=== PATIENT | female | born 2005 | race Caucasian/White ===

== ENCOUNTER 2024-09-24 10:15 | Emergency (ER) | payer MEDICAID, SELFPAY ==
[2024-09-24 10:16] VITALS: BP 133/85; PULSE 105; RESP 20; TEMP 37.2; O2SAT 95; BMI 33.2
--- NOTE | 2024-09-24 11:02 | CT_ITS ---
STUDY: CT SOFT TISSUE NECK WITH CONTRAST REASON FOR EXAM: Female, 19 years old. foreign body sensation in the neck. Two-week history of a sore throat. RADIATION DOSAGE (If Supplied By Facility): CTDIvol = ( 17.98 ) mGy, DLP = ( 539.01 ) mGycm TECHNIQUE: The patient was scanned in a multi-detector CT scanner. High resolution transaxial imaging was performed following intravenous administration of IV 75mL Isovue-370. Sagittal and coronal images were reconstructed. Individualized dose optimization techniques were used for this CT. COMPARISON: None. FINDINGS: Normal bilateral parotid glands. Normal bilateral vocational rehabilitation technician spaces. Normal bilateral parapharyngeal spaces. Normal bilateral carotid spaces. Normal bilateral sublingual and submandibular glands and spaces. Normal visualized nasopharynx. Normal retropharyngeal space. Normal perivertebral space. Normal visualized bilateral faucial tonsils. The visualized tongue, tongue base and oropharynx are normal. The visualized cervical lymph nodes (levels I-) are within normal size limits, and maintain normal morphology. There is no demonstrated solid or cystic mass lesion. There is no abnormal contrast enhancement. Normal epiglottis, bilateral vallecula and hypopharynx. The pre-epiglottic and paraglottic adipose spaces are normal. Normal visualized bilateral piriform sinuses, aryepiglottic folds, vocal cords, and arytenoid-cricoid articulations. Normal subglottic trachea. Normal bilateral lobes of the thyroid gland. Normal visualized pulmonary apices. Normal visualized paranasal sinuses. Normal visualized cervical spine. CT/Soft Tissue Neck WITH Contrast IMPRESSION: Normal enhanced CT examination of the soft tissues of the neck. Electronically Signed: Edgardo Costa MD at 12:17 EST ,
--- NOTE | 2024-09-24 11:03 | RAD_ITS ---
STUDY: X-RAY CHEST REASON FOR EXAM: Female, 19 years old. Cough TECHNIQUE: PA and lateral views of the chest. COMPARISON: Comparison is made with prior study dated June 25, 2014. FINDINGS: The lungs are clear and expanded. There is no demonstrated pleural abnormality. Normal size heart. Normal mediastinum and blayne. Normal visualized pulmonary arteries. Normal visualized aortic arch and descending thoracic aorta. Normal visualized thoracic spine. Normal visualized ribs, clavicles, and shoulders. There is no demonstrated abnormality of the visualized soft tissue structures of the upper abdomen. RAD/Chest PA and Lateral IMPRESSION: Normal x-ray examination of the chest. Electronically Signed: Edgardo Costa MD at 12:17 [facility] ,
[2024-09-24 11:23] LABS: Absolute Lymphocyte Count 2.17 X10^3/uL (0.83-4.51); Basophil# 0.05 X10^3/uL; Basophil% 0.6 % (0-1); Eosinophil# 0.22 X10^3/uL; Eosinophils% 2.7 % (0-5); Hematocrit 42.5 % (37-47); Hemoglobin 13.8 g/dL (12.0-15.0); Lymphocyte # 2.17 X10^3/ul (0.83-4.51); Lymphocyte % 26.9 % (19-41); Mean Corp Hgb Conc 32.5 g/dL (32-36); Mean Corpuscular Hgb 28.8 pg (27.0-32.0); Mean Corpuscular Volume 88.5 fL (81-99); Mean Platelet Vol. 9.8 fl (6.2-12.0); Monocyte# 0.66 X10^3/uL; Monocyte% 8.2 % (0-10); NRBC Flagged by Analyzer 0 % (0-5); Neutrophil # 4.96 X10^3/uL (2.7-7.7); Neutrophil % 61.4 % (47-70); Platelet Count 343 K/mm3 (150-450); RBC Distribution Width CV 13.1 % (11.6-14.6); RBC Distribution Width SD 42.4 fl (35.1-43.9); White Blood Count 8.1 K/mm3 (4.4-11.0)
[2024-09-24 11:34] LABS: Internal QC Validated? YES +Cl - CLEAR BKGD; Pregnancy, Serum, hCG Quali. NEGATIVE Negative
--- NOTE | 2024-09-24 11:35 | ED.VIS.DYS ---
HPI History of Present Illness Chief Complaint: Cough Narrative Narrative: Chief complaint and HPI: Throat foreign body sensation. 19-year-old female with no significant past medical history presents for evaluation of throat foreign body sensation. Patient states 3 weeks ago she developed a foreign body sensation in her throat. Mostly located on the right side. Patient states that it is causing her to cough frequently. She went to urgent care and they tested her for strep pharyngitis which was negative. Gave her cough medicine. Patient does not follow regularly with a PCP so therefore did not follow-up. She has continued to have this sensation as well as coughing. She denies any fever, chills, congestion, body aches, headache, night sweats, sore throat, weight loss, chest pain, shortness of breath, abdominal pain, nausea, vomiting. Patient denies any acid reflux. Eating and drinking well. Denies choking on any foreign body. Review of systems: See HPI Medications: As listed on the chart Allergies: As listed on the chart PFSH: Per chart Vital signs: As listed on the chart. Reviewed. Physical exam: Gen: A&O x3, NAD Head: Normocephalic, atraumatic Eyes: No sclera icterus, conjunctiva clear, PERRL, EOMI ENT: TMs clear BL, moist mucous membranes, posterior oropharynx unremarkable, uvula midline, tonsils not enlarged, no tonsillar exudates Neck: Trachea midline, No JVD, Full ROM, No meningismus, no lymphadenopathy, no thyroid enlargement CV: RRR, no murmurs, no peripheral edema Resp: Lungs CTA BL, no w/r/c GI: Abd soft, non-distended, non-tender, no r/r/g Musc: Full ROM, no deformity Skin: Warm, dry, no rash Neuro: Alert, oriented, grossly intact, sensation intact Psych: Cooperative, appropriate mood and affect [facility] Home Medications ?Medication ?Instructions ?Recorded ?Last Taken ?Type pantoprazole 40 mg tablet,delayed 40 mg PO DAILY 30 days #30 tabs 09/24/24 Unknown Rx release (Protonix) Allergy/AdvReac Type Severity Reaction Status Date / Time No Known Allergies Allergy Verified 06/24/14 23:12 Social History Smoking Status: Never smoker EXAM Physical Exam Const Vital Signs: 09/24/24 10:16 09/24/24 10:16 Temperature 99 F Temperature Source Temporal Pulse Rate 105 H Respiratory Rate 20 H Respiratory Effort Normal Non-Labored Respiratory Depth Normal Respiratory Pattern Normal Blood Pressure 133/85 H Blood Pressure Mean 101 Pulse Ox 95 Oxygen Delivery Method Room Air MDM MDM MDM Narrative Medical decision making narrative: 19-year-old female with no significant past medical history presents for evaluation of throat foreign body sensation. Differential diagnosis includes but is not limited to GERD, acid reflux, strep pharyngitis, mono, lymphadenopathy, soft tissue mass. Physical exam is unremarkable. Except for patient is frequently has a dry cough and sounds as if she is clearing her throat. Pepcid ordered for suspected GERD. Will obtain basic labs including strep PCR, monotest, and CT soft tissue neck. CBC without leukocytosis or anemia. BMP unremarkable. Monotest negative. Strep PCR negative. Chest x-ray personally reviewed by [place], ED physician. No pneumothorax, effusion, pneumonia, cardiomegaly. CT soft tissue neck without any acute abnormality. At this point in time, no clear etiology to explain patient's symptoms. Given that she has this chronic cough with a globus sensation suspect possible acid reflux versus GERD. Will place on Protonix. Follow-up with PCP. Patient and mother were updated of all the results and the plan. They confirmed understanding. Patient stable to discharge home. Impression: 1. Globus sensation 2. Chronic cough 3. Concern for possible GERD Lab Data Labs: Laboratory Results - last 24 hr 09/24/24 11:11 WBC 8.1 RBC 4.80 Hgb 13.8 Hct 42.5 MCV 88.5 MCH 28.8 MCHC 32.5 RDW Std Deviation 42.4 RDW Coeff of Jodie 13.1 Plt Count 343 MPV 9.8 Immature Gran % (Auto) 0.200 Neut % (Auto) 61.4 Lymph % (Auto) 26.9 Lamar % (Auto) 8.2 Eos % (Auto) 2.7 Baso % (Auto) 0.6 Absolute Neuts (auto) 5.0 Absolute Lymphs (auto) 2.17 Nucleated RBC % 0 Sodium 138 Potassium 3.8 Chloride 104 Carbon Dioxide 28.0 Anion Gap 6 BUN 7 Creatinine 0.75 Estim Creat Clear Calc 141.39 Est GFR (MDRD) Af Amer 124 Est GFR (MDRD) Non-Af 103 BUN/Creatinine Ratio 9.3 L Glucose 95 Calcium 9.8 Serum , Qual NEGATIVE Monoscreen Negative Radiography Diagnostic Testing: Clinical Impression(s) from Imaging Studies Soft Tissue Neck CT 09/24/24 11:02 IMPRESSION: Normal enhanced CT examination of the soft tissues of the neck. Electronically Signed: Egdardo Costa MD at 12:17 EST , Chest X-Ray 09/24/24 11:03 IMPRESSION: Normal x-ray examination of the chest. Electronically Signed: Edgardo Costa MD at 12:17 EST , Discharge Plan Triage Chief Complaint: Cough ED Provider: Laz Miller Dx/Rx/DC Orders Clinical Impression: Acid reflux, Globus sensation Instructions: GERD Lifestyle Changes, Medicines for GERD Prescriptions: New pantoprazole [Protonix] 40 mg tablet,delayed release (DR/EC) 40 mg PO DAILY 30 Days Qty: 30 0RF Primary Care Provider: Care Physician,No Primary Referrals: Ramon John MD [Med Staff - Active Staff] - 3-5 Days Care Physician,No Primary [Primary Care Provider] - Activity Restrictions/Additional Instructions: Follow-up with your primary care physician listed above. Print Language: Occitan Disposition Disposition: Home, Self Care
[2024-09-24 11:38] LABS: Anion Gap 6 (5-15); BUN 7 mg/dL (7-18); BUN/Creat Ratio 9.3 RATIO (10-20); Calcium,Total 9.8 mg/dL (8.5-10.1); Chloride 104 mmol/L (98-107); Creatinine, Serum 0.75 mg/dL (0.55-1.02); EST Glomerular Filtration Rate 103 mL/min (>60); Est Glom Filt Rate - Afr Amer 124 mL/min (>60); Estimated Creatinine Clearance 141.39 ml/min; Glucose 95 mg/dL (74-106); Potassium 3.8 mmol/L (3.5-5.1); Sodium Level 138 mmol/L (136-145)
[2024-09-24 11:43] LABS: Internal QC Validated? YES +Cl - CLEAR BKGD
[2024-09-24 11:47] LABS: Monotest Negative (Negative); Record Kit Lot#, Mono 13241430
[2024-09-24] MEDS: Famotidine 200 MG/20 ML MDV 20 MG in 0.9% Normal Saline (Pres. free 8 ML 300 MG IV (12:15)
--- NOTE | 2024-09-24 12:20 | CM.ED ---
Social work Reason for referral: no PCP Referral source: case find This SW identified patient's lack of PCP and need for resources. This SW entered patient's room, introducing self and role at [facility]. Patient lying in bed, alert and oriented. Patient's mother, Jessica, bedside; patient gave permission to speak in front of patient's mother. Patient confirmed lacking a PCP and needing to obtain a new one due to being 19. Patient accepted resources of [facility] Provider Directory and [facility] information. Patient's mother shared patient's recent dilemma involving dental issues, but patient's mother stated these issues had been taken care of at patient's new dental office in [place]. Patient and patient's mother denied further needs at this time. Joanna Khan, FREEZING MACHINE OPERATOR, CONSUMER SCIENCE TEACHER
[2024-09-24 12:43] VITALS: BP 144/67; PULSE 72; RESP 14; TEMP 36.8; O2SAT 97
== END 2024-09-24 12:44 | disposition home or self-care (01) ==
PROVIDERS: Emergency Provider Surgery; Visit Provider Surgery
DX: K21.9 Gastro-esophageal reflux disease without esophagitis (principal); F45.8 Other somatoform disorders; R05.3 Chronic cough; R09.A2 Foreign body sensation, throat